=== PATIENT | female | born 1980 | race Caucasian/White ===

== ENCOUNTER → 2018-12-30 | Outpatient (CLI) | payer MEDICARE, OTHER | END | disposition home or self-care (01) | LOC: NUC 11:01 | DX: R11.10 Vomiting, unspecified (principal) | CPT/HCPCS: 78264 ==

== ENCOUNTER 2019-01-12 11:41 | Day surgery (SDC) | payer MEDICARE, OTHER ==
[2019-01-12] MEDS ORDERED: PROPOFOL 40 ML (13:38)
== END 2019-01-12 15:04 | disposition home or self-care (01) ==
LOC: GIL 11:41
DX: K29.30 Chronic superficial gastritis without bleeding (principal); G81.91 Hemiplegia, unspecified affecting right dominant side
CPT/HCPCS: 43239; 84703; 88305; 88312